=== PATIENT | female | born 1940 | race African-American/Black ===

== ENCOUNTER 2024-10-19 02:53 | Emergency (ER) | payer MEDICARE ==
[~2024-10-19] VITALS: Ht 162.6 cm; Wt 72.6 kg
[2024-10-19] MEDS: IPRATROPIUM BROMIDE 0.5 MG/2.5 ML NEBU NEB ONE ×2 (03:22→04:48)
[2024-10-19] MEDS: ALBUTEROL SULFATE 2.5 MG/3 ML NEBU NEB ONE ×2 (03:22→04:47)
[2024-10-19] MEDS ORDERED: ALBUTEROL SULFATE 2.5 MG/3 ML NEBU ONE ×2 (03:27→04:21)
[2024-10-19] MEDS ORDERED: IPRATROPIUM BROMIDE 0.5 MG/2.5 ML NEBU ONE ×2 (03:27→04:21)
[2024-10-19 03:33] LABS: BASOPHILS % (AUTO) 0.7 % (0.0-2.0); EOSINOPHILS # (AUTO) 0.1 K/uL (0.0-0.7); EOSINOPHILS % (AUTO) 1.2 % (0.0-7.0); HEMATOCRIT 44.5 % (31.2-41.9); HEMOGLOBIN 14.7 g/dL (10.9-14.3); LYMPHOCYTES % (AUTO) 22.8 % (20.5-51.5); MEAN CORPUSCULAR HEMOGLOBIN 29.3 uug (24.7-32.8); MEAN CORPUSCULAR HGB CONC 33 g/dL (32.3-35.6); MEAN CORPUSCULAR VOLUME 88.7 fL (75.5-95.3); MONOCYTES # (AUTO) 0.5 K/uL (0.1-1.30); MONOCYTES % (AUTO) 11.8 % (0.0-11.0); NEUTROPHILS # (AUTO) 2.8 K/uL (1.8-8.9); NEUTROPHILS % (AUTO) 63.5 % (38.5-71.5); PLATELET COUNT (AUTO) 148 K/uL (179-408); RED BLOOD CELL COUNT(AUTO) 5.01 MIL/uL (3.63-4.92); RED CELL DISTRIBUTION WIDTH 14.9 % (12.3-17.7); WHITE BLOOD COUNT (AUTO) 4.4 K/uL (3.8-11.8)
[2024-10-19 03:44] LABS: ALANINE AMINOTRANSFERASE 50 U/L (14-59); ALBUMIN 3.5 g/dL (3.4-5.0); ALKALINE PHOSPHATASE 117 U/L (50-136); ASPARTATE AMINOTRANSFERASE 35 U/L (15-37); BILIRUBIN,TOTAL 0.5 mg/dL (0.2-1.0); CALCIUM 8.7 mg/dL (8.5-10.1); CARBON DIOXIDE 31 mmol/L (21-32); CHLORIDE 101 mmol/L (98-107); CREATININE 0.7 mg/dL (0.6-1.3); GLUCOSE 152 mg/dL (74-106); MAGNESIUM 1.9 mg/dL (1.8-2.4); SODIUM SERUM 142 mmol/L (136-145); TOTAL PROTEIN, SERUM 7.1 g/dL (6.4-8.2); UREA NITROGEN, BLOOD 9 mg/dL (7-18)
[2024-10-19 03:45] VITALS: O2SAT 90
[2024-10-19] MEDS ORDERED: DOXYCYCLINE HYCLATE 100 MG INJ IV ONE (03:49)
[2024-10-19] MEDS ORDERED: methylPREDNISolone SOD SUCC 125 MG/2 ML VIAL ONE (03:49)
[2024-10-19] MEDS ORDERED: MAGNESIUM SULFATE/D5W 200 ML ONE (03:50)
[2024-10-19] MEDS: DOXYCYCLINE HYCLATE IV 100 MG in IV DEXTROSE 5% 100 ML IV ONE (03:59)
[2024-10-19 04:00] VITALS: O2SAT 96; O2SAT 99
[2024-10-19] MEDS: methylPREDNISolone SOD SUCC 125 MG/2 ML VIAL IV ONE (04:31)
[2024-10-19] MEDS ORDERED: POTASSIUM CHLORIDE 20 MEQ TAB.PRT.SR ONE (04:32)
[2024-10-19] MEDS: POTASSIUM CHLORIDE 20 MEQ TAB.PRT.SR PO ONE (04:34)
[2024-10-19 04:35] VITALS: O2SAT 97
[2024-10-19 04:50] VITALS: O2SAT 97
[2024-10-19] MEDS: MAGNESIUM SULFATE 2 GM in IV DEXTROSE 5% 100 ML IV ONE (05:08)
[2024-10-19 05:35] VITALS: O2SAT 99
[2024-10-19] MEDS ORDERED: PRED50TA PO (05:50)
[2024-10-19] MEDS ORDERED: ALBU18HF2 INH (05:50)
[2024-10-19 06:25] VITALS: BP 157/83; O2SAT 99
== END 2024-10-19 06:26 | disposition home or self-care (01) ==
LOC: ER 02:57
DX: J44.9 Chronic obstructive pulmonary disease, unspecified (principal); J90 Pleural effusion, not elsewhere classified; R06.03 Acute respiratory distress; E87.6 Hypokalemia; Z79.52 Long term (current) use of systemic steroids; Z20.822 Contact with and (suspected) exposure to COVID-19
CPT/HCPCS: 99291; 96365; 71045; 96367; 96375; 87426; 87804 ×2; 80053; 83735; 85025; 36415; 94644; 93005; J2919; J3490 ×2; J3475 ×2; A4606; A4663; J3590